=== PATIENT | female | born 1990 | race Caucasian/White ===

== ENCOUNTER 2018-02-05 20:08 | Emergency (ER) | payer MEDICAID ==
[~2018-02-05] VITALS: Ht 157.5 cm; Wt 72.7 kg
[2018-02-05] MEDS ORDERED: IBUPROFEN 600MG TABLET PO ONE (20:45)
[2018-02-05] MEDS ORDERED: HYDROCODONE/ACETAMINOPHEN 5/325MG TABLET PO ONE (20:45)
[2018-02-06 00:27] VITALS: BP 110/75
== END 2018-02-06 00:28 | disposition home or self-care (01) ==
LOC: ER 22:00
DX: S16.1XXA Strain of muscle, fascia and tendon at neck level, initial encounter (principal); M25.562 Pain in left knee; M25.561 Pain in right knee; R07.89 Other chest pain; V49.09XA Driver injured in collision with other motor vehicles in nontraffic accident, initial encounter; Y93.89 Activity, other specified; Y92.89 Other specified places as the place of occurrence of the external cause; Y99.8 Other external cause status
CPT/HCPCS: 71045; 72100; 72125; 73560; 93005; 99284; Z7610